=== PATIENT | male | born 1980 | race Two or more races ===

== ENCOUNTER 2021-11-28 08:38 | Inpatient (IN) | payer OTHER ==
[~2021-11-28] VITALS: Ht 195.6 cm; Wt 117.9 kg
[2021-11-28 14:09] VITALS: BP 120/71
[2021-11-28] MEDS ORDERED: MAGNESIUM HYDROXIDE 30 ML UDC PO PRN (15:00)
[2021-11-28] MEDS ORDERED: IBUPROFEN 600 MG TABLET PO PRN (15:00)
[2021-11-28] MEDS ORDERED: MAG HYDROX/AL HYDROX/SIMETH 30 ML UDC PO PRN (15:00)
[2021-11-28] MEDS ORDERED: ZOLPIDEM TARTRATE 10 MG TABLET PO PRN (15:00)
[2021-11-28] MEDS ORDERED: LORAZEPAM 1 MG TABLET FOR AGITATION PO PRN (15:00)
[2021-11-28 16:00] VITALS: BP 120/71
[2021-11-28 20:00] VITALS: BP 129/69
[2021-11-29 08:00] VITALS: BP 123/82
[2021-11-29 16:00] VITALS: BP 141/77
[2021-11-29 20:00] VITALS: BP 131/73
[2021-11-30 08:00] VITALS: BP 117/75
[2021-11-30 16:00] VITALS: BP 100/69
[2021-11-30 20:00] VITALS: BP 123/73
[2021-12-01 08:00] VITALS: BP 102/62
[2021-12-01 16:00] VITALS: BP 118/62
[2021-12-01 20:58] VITALS: BP 143/88
[2021-12-02 08:00] VITALS: BP 135/67
[2021-12-02 16:00] VITALS: BP 119/60
[2021-12-02 19:35] VITALS: BP 123/62
[2021-12-03 08:00] VITALS: BP 99/63
[2021-12-03 16:00] VITALS: BP 104/56
[2021-12-03 20:00] VITALS: BP 117/57
[2021-12-04 08:03] VITALS: BP 130/62
[2021-12-04 15:37] VITALS: BP 115/64
[2021-12-04 21:45] VITALS: BP 123/62
[2021-12-05] MEDS ORDERED: LORAZEPAM 1 MG TABLET FOR AGITATION PO PRN (12:00)
[2021-12-05 15:48] VITALS: BP 127/68
[2021-12-05] MEDS: ZOLPIDEM TARTRATE 10 MG TABLET PO PRN (19:49)
[2021-12-05 20:00] VITALS: BP 124/67
[2021-12-06 08:00] VITALS: BP 123/88
[2021-12-06 16:00] VITALS: BP 120/54
[2021-12-06] MEDS: ACETAMINOPHEN ES 500 MG TABLET PO PRN (16:09)
[2021-12-06 20:00] VITALS: BP 112/62
[2021-12-06] MEDS: INVEST MED MK-8189-008-02 MISC 1 DOSE PO SCH (20:14)
[2021-12-06] MEDS: ZOLPIDEM TARTRATE 10 MG TABLET PO PRN (22:33)
[2021-12-07 08:00] VITALS: BP 123/91
[2021-12-07 16:00] VITALS: BP 130/81
[2021-12-07 20:00] VITALS: BP 105/67
[2021-12-07] MEDS: INVEST MED MK-8189-008-02 MISC 1 DOSE PO SCH (20:23)
[2021-12-07] MEDS: ZOLPIDEM TARTRATE 10 MG TABLET PO PRN (23:33)
[2021-12-08 08:00] VITALS: BP 113/67
[2021-12-08 16:00] VITALS: BP 115/70
[2021-12-08 20:00] VITALS: BP 110/65
[2021-12-08] MEDS: INVEST MED MK-8189-008-02 MISC 1 DOSE PO SCH (20:04)
[2021-12-09 08:00] VITALS: BP 138/83
[2021-12-09 16:00] VITALS: BP 136/93
[2021-12-09 19:50] VITALS: BP 133/90
[2021-12-09] MEDS: INVEST MED MK-8189-008-02 MISC 1 DOSE PO SCH (20:20)
[2021-12-09] MEDS: ZOLPIDEM TARTRATE 10 MG TABLET PO PRN (23:29)
[2021-12-10 08:00] VITALS: BP 125/74
[2021-12-10 16:00] VITALS: BP 149/80
[2021-12-10 19:37] VITALS: BP 112/55
[2021-12-10 20:00] VITALS: BP 112/55
[2021-12-10] MEDS: INVEST MED MK-8189-008-02 MISC 1 DOSE PO SCH (20:09)
[2021-12-10] MEDS: ZOLPIDEM TARTRATE 10 MG TABLET PO PRN (23:04)
[2021-12-11 08:00] VITALS: BP 115/71
[2021-12-11 16:00] VITALS: BP 156/85
[2021-12-11] MEDS: INVEST MED MK-8189-008-02 MISC 1 DOSE PO SCH (20:17)
[2021-12-11 20:39] VITALS: BP 121/85
[2021-12-11] MEDS: ZOLPIDEM TARTRATE 10 MG TABLET PO PRN (20:58)
[2021-12-12 08:00] VITALS: BP 132/80
[2021-12-12 16:10] VITALS: BP 140/81
[2021-12-12 20:00] VITALS: BP 129/84
[2021-12-12] MEDS: INVEST MED MK-8189-008-02 MISC 1 DOSE PO SCH (20:25)
[2021-12-12] MEDS: ZOLPIDEM TARTRATE 10 MG TABLET PO PRN (20:28)
[2021-12-13 08:00] VITALS: BP_SYST 100; BP_SYST 113; BP_DIAS 63; BP_DIAS 74
[2021-12-13 20:00] VITALS: BP 152/96
[2021-12-13] MEDS: ZOLPIDEM TARTRATE 10 MG TABLET PO PRN (20:08)
[2021-12-13] MEDS: INVEST MED MK-8189-008-02 MISC 1 DOSE PO SCH (20:08)
[2021-12-14] MEDS: LORAZEPAM 1 MG TABLET FOR AGITATION PO PRN ×2 (02:19→09:08)
[2021-12-14] MEDS: ACETAMINOPHEN ES 500 MG TABLET PO PRN (04:05)
[2021-12-14 08:00] VITALS: BP 103/57
[2021-12-14] MEDS ORDERED: PRED20TA GT (11:34)
[2021-12-14] MEDS ORDERED: MELO15TA13 PO (11:34)
[2021-12-14] MEDS ORDERED: diphenhydrAMINE HCL 50 MG/ML VIAL IM ONE (15:00)
[2021-12-14] MEDS ORDERED: LORAZEPAM INJ 2 MG/ML VIAL IM ONE (15:00)
[2021-12-14] MEDS: INVEST MED MK-8189-008-02 MISC 1 DOSE PO SCH (20:20)
[2021-12-14 20:23] VITALS: BP 113/65
[2021-12-14] MEDS: ZOLPIDEM TARTRATE 10 MG TABLET PO PRN (21:06)
[2021-12-15 08:00] VITALS: BP 112/74
[2021-12-15] MEDS ORDERED: MELOXICAM 7.5 MG TABLET PO PRN (10:30)
[2021-12-15] MEDS: LORAZEPAM 1 MG TABLET PO SCH ×2 (12:04→17:00)
[2021-12-15] MEDS ORDERED: LORAZEPAM 1 MG TABLET PO SCH (13:00)
[2021-12-15 16:00] VITALS: BP 105/67
[2021-12-15] MEDS: INVEST MED MK-8189-008-02 MISC 1 DOSE PO SCH (20:20)
[2021-12-15] MEDS: METHYL SALICYLATE/MENTHOL 28GM 28 GM TUBE TP PRN (20:21)
[2021-12-15] MEDS: ZOLPIDEM TARTRATE 10 MG TABLET PO PRN (21:24)
[2021-12-15 22:17] VITALS: BP 135/82
[2021-12-16 08:00] VITALS: BP 115/83
[2021-12-16] MEDS: LORAZEPAM 1 MG TABLET PO SCH ×3 (09:00→17:00)
[2021-12-16] MEDS: predniSONE 5 MG TABLET PO SCH (09:00)
[2021-12-16 16:00] VITALS: BP 148/77
[2021-12-16 19:30] VITALS: BP 131/64
[2021-12-16] MEDS: METHYL SALICYLATE/MENTHOL 28GM 28 GM TUBE TP PRN (20:02)
[2021-12-16] MEDS: ZOLPIDEM TARTRATE 10 MG TABLET PO PRN (21:30)
[2021-12-16] MEDS ORDERED: OLANZAPINE 10 MG TABLET PO SCH (22:00)
[2021-12-17] MEDS: predniSONE 5 MG TABLET PO SCH (08:32)
[2021-12-17] MEDS: LORAZEPAM 1 MG TABLET PO SCH ×2 (08:32→08:37)
[2021-12-18] MEDS ORDERED: predniSONE 5 MG TABLET PO SCH (09:00)
[2021-12-20] MEDS ORDERED: predniSONE 5 MG TABLET PO SCH (09:00)
[2021-12-20] MEDS ORDERED: LORAZEPAM 1 MG TABLET FOR AGITATION PO PRN (12:00)
[2021-12-20] MEDS ORDERED: ZOLPIDEM TARTRATE 10 MG TABLET PO PRN (12:00)
[2021-12-22] MEDS ORDERED: predniSONE 5 MG TABLET PO SCH (09:00)
[2021-12-24] MEDS ORDERED: predniSONE 1 MG TABLET PO SCH (09:00)
[2021-12-27] MEDS ORDERED: ZOLPIDEM TARTRATE 10 MG TABLET PO PRN (12:00)
[2021-12-27] MEDS ORDERED: LORAZEPAM 1 MG TABLET FOR AGITATION PO PRN (12:00)
[2022-01-03] MEDS ORDERED: LORAZEPAM 1 MG TABLET FOR AGITATION/ANXIETY PO PRN (12:00)
[2022-01-03] MEDS ORDERED: ZOLPIDEM TARTRATE 10 MG TABLET PO PRN (12:00)
[2022-01-10] MEDS ORDERED: ZOLPIDEM TARTRATE 10 MG TABLET PO PRN (12:00)
[2022-01-10] MEDS ORDERED: LORAZEPAM 1 MG TABLET FOR AGITATION/ANXIETY PO PRN (12:00)
== END 2021-12-17 10:52 | disposition home or self-care (01) | DRG 951 ==
LOC: UNDOADMIN 13:06 → GPS 13:06 → MEDOV2 13:06
PROVIDERS: ADMIT Psychiatry & Neurology Psychiatry; ATTEND Psychiatry & Neurology Psychiatry
DX: Z00.6 Encounter for examination for normal comparison and control in clinical research program (principal); F20.0 Paranoid schizophrenia; F29 Unspecified psychosis not due to a substance or known physiological condition; F41.9 Anxiety disorder, unspecified; Z20.822 Contact with and (suspected) exposure to COVID-19; Z83.3 Family history of diabetes mellitus; Z79.899 Other long term (current) drug therapy
CPT/HCPCS: G0378; J1200; J2060

== ENCOUNTER 2021-12-14 10:14 | Emergency (ER) | payer OTHER ==
[~2021-12-14] VITALS: Ht 195.6 cm; Wt 120.7 kg
[2021-12-14 10:17] VITALS: BP 123/62
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
[2021-12-14] MEDS ORDERED: HYDROCODONE/APAP 10/325MG TABLET ONE (10:29)
[2021-12-14] MEDS ORDERED: HYDROCODONE/APAP 10/325MG TABLET PO ONE (10:30)
[2021-12-14] MEDS ORDERED: HYDROMORPHONE 1 MG/1 ML DISP.SYRIN ONE (11:27)
[2021-12-14] MEDS ORDERED: HYDROMORPHONE 1 MG/1 ML DISP.SYRIN IM ONE (11:30)
[2021-12-14] MEDS ORDERED: PRED20TA GT (11:34)
[2021-12-14] MEDS ORDERED: MELO15TA13 PO (11:34)
--- NOTE | 2021-12-14 11:39 | NUR ---
Patient discharged to home in stable condition. Written and verbal after care instructions given. Patient verbalizes understanding of instruction.
== END 2021-12-14 11:40 | disposition home or self-care (01) ==
LOC: ER 10:16
DX: M70.32 Other bursitis of elbow, left elbow (principal); Z60.2 Problems related to living alone; Y93.89 Activity, other specified
CPT/HCPCS: 73080; 96372; 99283; J1170

== ENCOUNTER 2023-12-29 12:59 | Inpatient (IN) | payer OTHER ==
[~2023-12-29] VITALS: Ht 193 cm; Wt 127.0 kg
[2023-12-29] MEDS ORDERED: LORAZEPAM 1 MG TABLET FOR AGITATION PO PRN (15:00)
[2023-12-29] MEDS ORDERED: ATORVASTATIN 20 MG XX SCH (15:00)
[2023-12-29] MEDS ORDERED: ACETAMINOPHEN ES 500 MG TABLET PO PRN (15:00)
[2023-12-29] MEDS ORDERED: ZOLPIDEM TARTRATE 10 MG TABLET PO PRN (15:00)
[2023-12-29] MEDS ORDERED: MAGNESIUM HYDROXIDE 30 ML UDC PO PRN (15:00)
[2023-12-29] MEDS ORDERED: MAG HYDROX/AL HYDROX/SIMETH 30 ML UDC PO PRN (15:00)
[2023-12-29] MEDS ORDERED: IBUPROFEN 200 MG TABLET PO PRN (15:00)
[2023-12-29 16:00] VITALS: BP 150/77; TEMP 98.2; O2SAT 97
[2023-12-29] MEDS: LISINOPRIL 40 MG PO SCH (16:37)
[2023-12-29 22:06] VITALS: BP 130/79; TEMP 99; O2SAT 94
[2023-12-29] MEDS: OLANZAPINE 10 MG PO SCH (22:18)
[2023-12-30 07:00] VITALS: BP 129/77; TEMP 98.2; O2SAT 99
[2023-12-30 16:00] VITALS: BP 119/82; TEMP 97.7; O2SAT 95
[2023-12-30 20:00] VITALS: BP 116/65; TEMP 98.8; O2SAT 97
[2023-12-31 07:00] VITALS: BP 124/91; TEMP 97.9; O2SAT 97
[2023-12-31 16:18] VITALS: BP 143/94; TEMP 98.1; O2SAT 98
[2023-12-31] MEDS: OLANZAPINE 10 MG PO SCH (22:21)
[2024-01-01 08:00] VITALS: BP 126/91; TEMP 97.9; O2SAT 97
[2024-01-01 16:00] VITALS: BP 152/84; TEMP 98; O2SAT 97
[2024-01-01 20:00] VITALS: BP 134/84; TEMP 98.9; O2SAT 98
[2024-01-02 08:48] VITALS: BP 101/70; TEMP 98.2; O2SAT 98
[2024-01-02 16:00] VITALS: BP 126/84; TEMP 98.1; O2SAT 98
[2024-01-02 20:00] VITALS: BP 122/78; TEMP 98.1; O2SAT 98
[2024-01-02] MEDS: OLANZAPINE 10 MG PO SCH (20:50)
[2024-01-03 09:17] VITALS: BP 118/69; TEMP 97.7; O2SAT 100
[2024-01-03 16:00] VITALS: BP 134/86; TEMP 98.6; O2SAT 100
[2024-01-03 20:00] VITALS: BP 128/79; TEMP 98.6; O2SAT 98
[2024-01-04 08:00] VITALS: BP 124/63; TEMP 97.7; O2SAT 96
[2024-01-04 16:00] VITALS: BP 110/75; TEMP 98.4; O2SAT 97
[2024-01-04 20:00] VITALS: BP 128/82; TEMP 98.5; O2SAT 96
[2024-01-05 08:00] VITALS: BP 101/62; TEMP 97.9; O2SAT 98
[2024-01-05 16:00] VITALS: BP 122/83; TEMP 99.4; O2SAT 98
[2024-01-05 20:00] VITALS: BP 139/96; TEMP 97.5; O2SAT 95
[2024-01-06 07:00] VITALS: BP 122/101; TEMP 97.7; O2SAT 100; O2SAT 96
[2024-01-06 16:00] VITALS: BP 145/88; TEMP 97.8; O2SAT 98
[2024-01-06 20:00] VITALS: BP 135/87; TEMP 98.2; O2SAT 97
[2024-01-07 08:00] VITALS: BP 117/84; TEMP 97.5; O2SAT 98
[2024-01-07] MEDS: ATORVASTATIN 20 MG PO SCH (09:51)
[2024-01-07 16:00] VITALS: BP 118/68; TEMP 98.2; O2SAT 97
[2024-01-07 20:00] VITALS: BP 130/90; TEMP 97.8; O2SAT 96
[2024-01-07] MEDS: OLANZAPINE 10 MG TABLET PO SCH (22:32)
[2024-01-08 20:00] VITALS: BP 137/84; TEMP 98.5; O2SAT 96
[2024-01-09 08:00] VITALS: BP 104/68; TEMP 98.2; O2SAT 98
[2024-01-09 16:00] VITALS: BP 120/71; TEMP 97.9; O2SAT 96
[2024-01-09 20:00] VITALS: BP 114/68; TEMP 98.8; O2SAT 96
[2024-01-10 07:00] VITALS: BP 156/71; TEMP 97.9; O2SAT 95
[2024-01-10 16:00] VITALS: BP 134/94; TEMP 97.4; O2SAT 97
[2024-01-10 20:14] VITALS: BP 128/79; TEMP 98.6; O2SAT 96
[2024-01-11 08:47] VITALS: BP 115/77; TEMP 97.5; O2SAT 97
[2024-01-12] MEDS ORDERED: ZOLPIDEM TARTRATE 10 MG TABLET PO PRN (13:00)
[2024-01-12] MEDS ORDERED: LORAZEPAM 1 MG TABLET FOR AGITATION PO PRN (13:00)
[2024-01-13] MEDS ORDERED: INVEST MED CVL-231-2002 PO SCH (10:00)
[2024-01-19] MEDS ORDERED: LORAZEPAM 1 MG TABLET FOR AGITATION PO PRN (13:00)
[2024-01-19] MEDS ORDERED: ZOLPIDEM TARTRATE 10 MG TABLET PO PRN (13:00)
[2024-01-26] MEDS ORDERED: ZOLPIDEM TARTRATE 10 MG TABLET PO PRN (13:00)
[2024-01-26] MEDS ORDERED: LORAZEPAM 1 MG TABLET FOR AGITATION PO PRN (13:00)
[2024-02-02] MEDS ORDERED: LORAZEPAM 1 MG TABLET FOR AGITATION PO PRN (13:00)
[2024-02-02] MEDS ORDERED: ZOLPIDEM TARTRATE 10 MG TABLET PO PRN (13:00)
[2024-02-09] MEDS ORDERED: ZOLPIDEM TARTRATE 10 MG TABLET PO PRN (13:00)
[2024-02-09] MEDS ORDERED: LORAZEPAM 1 MG TABLET FOR AGITATION PO PRN (13:00)
[2024-02-16] MEDS ORDERED: ZOLPIDEM TARTRATE 10 MG TABLET PO PRN (13:00)
[2024-02-16] MEDS ORDERED: LORAZEPAM 1 MG TABLET FOR AGITATION PO PRN (13:00)
[2024-02-23] MEDS ORDERED: LORAZEPAM 1 MG TABLET FOR AGITATION PO PRN (13:00)
[2024-02-23] MEDS ORDERED: ZOLPIDEM TARTRATE 10 MG TABLET PO PRN (13:00)
== END 2024-01-11 09:55 | disposition home or self-care (01) | DRG 951 ==
LOC: MED 14:26
PROVIDERS: ADMIT Psychiatry & Neurology Psychiatry; ATTEND Psychiatry & Neurology Psychiatry
DX: Z00.6 Encounter for examination for normal comparison and control in clinical research program (principal); F20.0 Paranoid schizophrenia; Z83.3 Family history of diabetes mellitus; I10 Essential (primary) hypertension; E78.00 Pure hypercholesterolemia, unspecified; E11.65 Type 2 diabetes mellitus with hyperglycemia; Z79.899 Other long term (current) drug therapy
CPT/HCPCS: G0378